=== PATIENT | male | born 1965 | race Caucasian/White ===

== ENCOUNTER 2017-11-15 22:05 | Emergency (ER) | payer SELFPAY ==
[2017-11-15 22:51] LABS: ADD MAN DIFF? NO
[2017-11-15 22:54] LABS: WHITE BLOOD COUNT 7.5 10^3/ul (4.8-10.8)
[2017-11-15 22:54] LABS: BASOPHILS % 0.5 % (0.0-2.0); EOSINOPHILS # 0.2 10^3/ul (0.0-0.5); EOSINOPHILS % 3.2 % (0.0-7.0); HEMATOCRIT 41.8 % (42.0-52.0); HEMOGLOBIN 14.5 g/dl (14.0-18.0); LYMPHOCYTES # 2.4 10^3/ul (0.8-2.9); LYMPHOCYTES % 31.6 % (15.0-51.0); MEAN CORPUSCULAR HEMOGLOBIN 33.1 pg (29.0-33.0); MEAN CORPUSCULAR HGB CONC 34.7 g/dl (32.0-37.0); MEAN CORPUSCULAR VOLUME 95.4 fl (82.0-101.0); MEAN PLATELET VOLUME 8.4 fl (7.4-10.4); MONOCYTE # 0.6 10^3/ul (0.3-0.9); MONOCYTES % 8.3 % (0.0-11.0); NEUTROPHIL # 4.2 10^3/ul (1.6-7.5); NEUTROPHILS % 56.1 % (39.0-77.0); PLATELET COUNT 184 10^3/UL (140-415); RED BLOOD COUNT 4.38 10^6/ul (4.70-6.10); RED CELL DISTRIBUTION WIDTH 11.9 % (11.5-14.5)
[2017-11-15] MEDS: SOD CHLORIDE 0.9% 1,000 ML IV (22:59)
[2017-11-15] MEDS: DIPHENHYDRAMINE 50 MG INJ IV (22:59)
[2017-11-15 23:13] LABS: ALANINE AMINOTRANSFERASE 56 IU/L (13-69); ALBUMIN 4.2 g/dl (3.3-4.9); ALBUMIN/GLOBULIN RATIO 1.27; ALKALINE PHOSPHATASE 88 IU/L (42-121); ANION GAP 17 (8-16); ASPARTATE AMINO TRANSFERASE 82 IU/L (15-46); BILIRUBIN,INDIRECT 0.2 mg/dl (0-1.1); BILIRUBIN,TOTAL 0.2 mg/dl (0.2-1.3); BLOOD UREA NITROGEN 10 mg/dl (7-20); CALCIUM 9.2 mg/dl (8.4-10.2); CARBON DIOXIDE 24 mmol/L (21-31); CHLORIDE 106 mmol/L (97-110); CREATININE 0.93 mg/dl (0.61-1.24); GLUCOSE 109 mg/dl (70-220); LIPASE 198 U/L (23-300); POTASSIUM 3.9 mmol/L (3.5-5.1); SODIUM 143 mmol/L (135-144); TOTAL PROTEIN 7.5 g/dl (6.1-8.1)
[2017-11-15 23:14] LABS: INR 1.03; PROTIME 13.6 Sec (11.9-14.9); PT RATIO 1.1
[2017-11-15 23:15] LABS: PARTIAL THROMBOPLASTIN TIME 29.5 Sec (25.0-35.0)
[2017-11-15 23:25] LABS: TROPONIN-I < 0.012 ng/ml (0.000-0.120)
== END 2017-11-16 05:45 | disposition home or self-care (01) ==
LOC: E/R 22:05
DX: L29.9 Pruritus, unspecified (principal); R00.2 Palpitations; R06.02 Shortness of breath; G47.00 Insomnia, unspecified; R10.9 Unspecified abdominal pain; J02.9 Acute pharyngitis, unspecified; J45.901 Unspecified asthma with (acute) exacerbation
CPT/HCPCS: 36415; 71045; 80053; 83690; 84484; 85025; 85378; 85610; 85730; 93005; 96374; 99285-25